=== PATIENT | male | born 1975 | race African-American/Black ===

== ENCOUNTER 2019-05-18 14:55 | Inpatient (IN) | payer SELFPAY ==
[~2019-05-18] VITALS: Ht 190.5 cm; Wt 87.4 kg
[2019-05-18] MEDS ORDERED: SODIUM CHLORIDE 0.9% 1,000 ML IV ONE (16:25)
[2019-05-18 16:40] LABS: Basophils # (auto) 0 uL; Basophils % (auto) 0.8 % (0.0-2.0); Eosinophils # (auto) 0.1 uL; Eosinophils % (auto) 2.3 % (0.0-7.0); Hematocrit 42.4 % (41.0-53.0); Hemoglobin 14.7 g/dL (13.5-17.5); Lymphocytes # (auto) 1.7 uL; Lymphocytes % (auto) 29.6 % (10.0-50.0); Mean Corpuscular Hemoglobin 33.4 pg (28.0-32.0); Mean Corpuscular Hgb Conc. 34.8 g/dL (32.0-36.0); Monocytes # (auto) 0.6 uL; Monocytes % (auto) 9.7 % (0.0-12.0); Neutrophils # (auto) 3.4 uL; Neutrophils % (auto) 57.6 % (37.0-80.0); Nucleated Red Blood Cells % 0.1 %; Platelet Count (auto) 212 10^3/uL (140-450); Red Blood Cells 4.41 10^6/uL (4.5-5.90); Red Cell Distribution Width 12.9 % (11.8-14.3); White Blood Cell 5.8 10^3/uL (4.4-10.8)
[2019-05-18 16:55] LABS: Albumin 3.8 g/dL (3.4-5.0); Anion Gap 5 (5-15); Blood Urea Nitrogen 14 mg/dL (7-18); Calcium 8.7 mg/dL (8.5-10.1); Carbon Dioxide 28 mmol/L (21-32); Chloride 105 mmol/L (98-107); Glucose 311 mg/dL (74-106); Potassium 4.2 mmol/L (3.5-5.1); Sodium 138 mmol/L (136-145)
[2019-05-18 16:58] LABS: Alanine Aminotransferase 17 U/L (16-61); Alkaline Phosphatase 104 U/L (45-117); Aspartate Aminotransferase 13 U/L (15-37); BUN/Creatinine Ratio 12.3; Bilirubin, Total 0.7 mg/dL (0.2-1.0); GFR African American 90 mL/min; GFR Non-African American 74 mL/min; Total Protein 7.2 g/dL (6.4-8.2)
[2019-05-18] MEDS ORDERED: PIPERACILLIN-TAZOB 3.375GM 100 ML IV ONE (17:00)
[2019-05-18] MEDS ORDERED: VANCOMYCIN 1GM/250ML 250 ML IV ONE (17:00)
[2019-05-18 17:03] LABS: INR 0.95 (0.9-1.15)
[2019-05-18] MEDS ORDERED: DEXTROSE (50%) 50ML SYRG IV PRN (21:45)
[2019-05-18] MEDS ORDERED: ONDANSETRON HCL 4 MG/2 ML VIAL IV PRN (21:45)
[2019-05-18] MEDS ORDERED: VANCOMYCIN PER PHARMACY 0 MG IV SCH (21:45)
[2019-05-18] MEDS ORDERED: TEMAZEPAM 15 MG CAP PO PRN (21:45)
[2019-05-18] MEDS ORDERED: HYDROcodone-ACET 5/325MG TAB PO PRN (21:45)
[2019-05-18] MEDS ORDERED: ACETAMINOPHEN 325 MG TAB PO PRN (21:45)
[2019-05-18] MEDS: FAMOTIDINE 20 MG TAB PO SCH (22:54)
--- NOTE | 2019-05-19 00:01 | NUR ---
OPENING NOTES RECEIVED REPORT FROM ED NURSE. PT IS ALERT AND ORIENTATED X 4 WITH NO S/S OF DISTRESS NOR SOB. NO REPORTS OF PAIN. BED BRAKES ARE LOCKED AND CALL LIGHT IS WITH IN REACH. BED IS IN LOWEST POSITION AND SIDE RAILS ARE UP X 2. HOB IS 30 DEGREES. DISCUSSED POC WITH PATIENT AND PT VERBALIZED UNDERSTANDING
[2019-05-19] MEDS ORDERED: INSLANTI SC (00:57)
[2019-05-19] MEDS ORDERED: METF-370 PO (00:57)
[2019-05-19] MEDS: VANCOMYCIN 1,500 MG in D5W 5% 250 ML IV SCH ×2 (01:00→10:47)
[2019-05-19] MEDS: PIPERACILLIN-TAZOB 3.375GM 100 ML IV SCH ×2 (01:06→06:01)
[2019-05-19 04:51] VITALS: BP 107/67
[2019-05-19] MEDS: ACCU-CHEK COMFORT CURVE STRIP VI SCH ×4 (05:52→18:00)
[2019-05-19] MEDS: InsuLIN REG 1unit/0.01ml Soln (100units/ml) SC SCH ×4 (06:01→18:00)
[2019-05-19 06:16] LABS: Basophils # (auto) 0.1 uL; Basophils % (auto) 1.6 % (0.0-2.0); Eosinophils # (auto) 0.2 uL; Eosinophils % (auto) 3.5 % (0.0-7.0); Hematocrit 38.8 % (41.0-53.0); Hemoglobin 13.4 g/dL (13.5-17.5); Lymphocytes # (auto) 2.1 uL; Lymphocytes % (auto) 42.9 % (10.0-50.0); Mean Corpuscular Hemoglobin 33.5 pg (28.0-32.0); Mean Corpuscular Hgb Conc. 34.5 g/dL (32.0-36.0); Mean Corpuscular Volume 97.2 fL (80.0-100.0); Monocytes # (auto) 0.6 uL; Monocytes % (auto) 11.8 % (0.0-12.0); Neutrophils % (auto) 40.2 % (37.0-80.0); Platelet Count (auto) 192 10^3/uL (140-450); Red Blood Cells 3.99 10^6/uL (4.5-5.90); Red Cell Distribution Width 12.8 % (11.8-14.3)
[2019-05-19 06:43] LABS: Potassium 3.7 mmol/L (3.5-5.1)
[2019-05-19 06:49] LABS: BUN/Creatinine Ratio 13.7; Calcium 8.2 mg/dL (8.5-10.1)
--- NOTE | 2019-05-19 07:19 | NUR ---
Opening Shift Note: Assumed care of patient, awake and alert. No S/S of distress/SOB or pain. Bed in lowest locked position, side rails up x 2, call light within reach. Patient instructed on POC and to call for assist PRN, will continue to monitor for changes Q1hr and PRN. Addendum: 05/19/19 at 1501 by YENI BLANCHARD RN RN Disregard. Wrong patient.
--- NOTE | 2019-05-19 07:26 | NUR ---
Opening Shift Note: Assumed care of patient, awake and alert. No S/S of distress/SOB or pain. Bed in lowest locked position, side rails up x 2, call light within reach. Patient instructed on POC and to call for assist PRN, will continue to monitor for changes Q1hr and PRN.
--- NOTE | 2019-05-19 07:30 | NUR ---
CLOSING NOTES ENDORSED CARE TO DAY SHIFT NURSE
--- NOTE | 2019-05-19 08:44 | NUR ---
Urine sample collected. Sent to lab.
[2019-05-19 09:04] LABS: Urine Bacteria NONE SEEN /hpf (None Seen); Urine Blood Negative /uL (Negative); Urine Specific Gravity 1.018 (1.001-1.035); Urine WBC <1 /hpf (0 - 3)
[2019-05-19 09:26] VITALS: BP 107/53
[2019-05-19] MEDS: FAMOTIDINE 20 MG TAB PO SCH ×2 (10:43→23:57)
[2019-05-19] MEDS ORDERED: VANCOMYCIN 1,250 MG in D5W 5% 250 ML IV SCH (11:00)
[2019-05-19] MEDS: ALBUTEROL SULF 2.5 MG/0.5ML(0.5%) NEB SOLN NEB SCH ×2 (11:32→18:38)
[2019-05-19] MEDS: IPRATROPIUM BROM 0.5 MG/2.5ML INH SOL NEB SCH ×2 (11:32→18:38)
--- NOTE | 2019-05-19 11:55 | NUR ---
WOUND CARE NOTE: IN TO SEE PATIENT AT THIS TIME PER WOUND CARE CONSULT REQUEST. PATIENT NOTED TO HAVE WOUND UPON ADMIT. WOUND PHOTO TAKEN AT THAT TIME BY BEDSIDE NURSE FOR REFERENCE. PATIENT ADMITTED TO [facility] WITH DIAGNOSIS OF RIGHT FOOT CELLULITIS. CURRENT ROLANDO SCORE IS 21. PATIENT IS FULLY AMBULATORY. PATIENT HAS HISTORY WITH DM SINCE THE AGE OF 12. HE ALSO HAS HISTORY WITH AMPUTATION OF RIGHT # 1 TOE. STUMP IS WELL HEALED, NO WOUND PRESENT. PATIENT STATES THAT HE LOST HIS TOENAIL TO THE LEFT # 2 TOE WHEN IN BED. HE IS NOTED TO HAVE A 1 X 1.2 CM OPEN WOUND FROM NAIL AVULSION/DFU NOTED. WOUND BED IS PINK, PERIWOUND IS BRIGHT RED, EDEMATOUS. SCANT SEROUS DRAINAGE NOTED. PATIENT EDUCATED ON DM/DFU AND THE NEED FOR PATIENT TO CONSULT WITH LOGISTICS MANAGER. HE STATES THAT HE WILL DO THAT, HE HAS NOT SEEN A LOGISTICS MANAGER FOR SEVERAL YEARS. APPLIED HINA TREVINO TO WOUND, WRAPPED TOE/FOOT WITH SMALL KERLIX, SECURED WITH TAPE. RECOMMEND: ELEVATION OF LEFT FOOT UP ONTO PILLOWS FOR EDEMA CONTROL, EOD/PRN DRESSING CHANGE TO LEFT # 2 TOE, DIETARY CONSULT, PODIATRY CONSULT, CONTINUED MONITORING BY WOUND CARE TEAM. Addendum: 05/19/19 at 1918 by Viki Mason RN Amended: Links added.
[2019-05-19 12:52] VITALS: BP 121/66
[2019-05-19 12:55] VITALS: BP 118/67
[2019-05-19] MEDS: cefTRIAXone 1GM/50ML D5W 50 ML IV SCH (13:21)
[2019-05-19] MEDS: metroNIDAZOLE 500MG/100ML 100 ML IV SCH ×2 (14:56→23:58)
[2019-05-19 16:32] VITALS: BP 120/78
--- NOTE | 2019-05-19 19:30 | NUR ---
Opening Shift Note Assumed care of patient, awake and alert and watching TV. No S/S of distress/SOB, and pt denies pain. Instructed on POC and to call for assist PRN. This RN will continue to monitor for changes Q1hr and PRN. Socks and shoes on. Bed low and locked. Call light within reach.
--- NOTE | 2019-05-19 21:10 | NUR ---
Pt amb to nurses' station to ask about possibility of his going home and returning. He states that his has papers he needs and will evidently not be bringing them to the hospital as he needs. He further states that she may leave him; and if he does not go home to take care of the papers, he will prob. lose his home and his car. He states he wants to return after taking care of the situation but does not want "to start all over in the ER." This RN repeatedly answering his questions and informing him that he has the right to leave if he desires, but that he will have to go Against Medical Advice (AMA); and he will have to return through the ER who may admit and may not. Pt states RN does not understand and asked for CN to be called. This RN informed MARCELA Soria, CN of need for her to speak with pt.
--- NOTE | 2019-05-19 21:20 | NUR ---
Estella, RN, charge nurse in to this pt's room to discuss poss. for pt to leave hospital and come back without discharge. This RN accompanying charge nurse for her request. Charge nurse repeated options as presented by this RN, that pt can sign self out AMA and return to the ER for their evaluation for need to re-admit or not. Pt pressing for CN to okay his departure and reassure his admittance back into hospital without going through ER. Pt asking to speak with [facility]. Estella called and spoke with [facility] via telephone.
--- NOTE | 2019-05-19 21:45 | NUR ---
Information Broker in to pt's room to speak with him; states pt has changed his mind and will be staying.
[2019-05-19 22:00] VITALS: BP 129/76
--- NOTE | 2019-05-19 23:20 | NUR ---
Opening Note/Transfer of Care Received report from RN at 2330. Assumed care of patient. Patient awake and alert. No S/S of distress/SOB or pain. Instructed on POC and to call for assist PRN, will continue to monitor for changes. Bed locked in lowest position and bed rails up x2. Call light within reach.
--- NOTE | 2019-05-19 23:20 | NUR ---
TRANSFER OF NURSING CARE: Report given by this RN to transfer care of pt to Marcin Ochoa RN for remainder of shift for staffing purposes. Pt stable.
--- NOTE | 2019-05-20 | NUR ---
Changed left foot dressing per orders
[2019-05-20] MEDS: ACCU-CHEK COMFORT CURVE STRIP VI SCH ×5 (00:02→23:31)
[2019-05-20] MEDS: InsuLIN REG 1unit/0.01ml Soln (100units/ml) SC SCH ×5 (00:29→23:31)
[2019-05-20 04:58] VITALS: BP 101/60
[2019-05-20] MEDS: IPRATROPIUM BROM 0.5 MG/2.5ML INH SOL NEB SCH ×3 (06:33→19:21)
[2019-05-20] MEDS: ALBUTEROL SULF 2.5 MG/0.5ML(0.5%) NEB SOLN NEB SCH ×3 (06:33→19:21)
[2019-05-20] MEDS: metroNIDAZOLE 500MG/100ML 100 ML IV SCH ×3 (06:42→22:00)
--- NOTE | 2019-05-20 07:37 | NUR ---
Opening Shift Note: Assumed care of patient, awake and alert. No S/S of distress/SOB. Patient states pain at IV site. Bed in lowest locked position, side rails up x 2, call light within reach. Patient instructed on POC and to call for assist PRN, will continue to monitor for changes Q1hr and PRN.
--- NOTE | 2019-05-20 08:10 | NUR ---
IV insertion: IV access obtained, via clean sterile technique by inserting 20 gauge catheter at right forearm after 2 attempt. IV secured properly. No trauma to site. Patient tolerated well. Flagyl IV antibiotic restarted at this time.
--- NOTE | 2019-05-20 08:15 | NUR ---
IV removal: Left forearm IV DC'd with clean sterile technique, catheter fully intact. Pressure dressing applied to site. Patient tolerated well.
[2019-05-20 09:00] VITALS: BP 124/74
[2019-05-20] MEDS: cefTRIAXone 1GM/50ML D5W 50 ML IV SCH (09:32)
[2019-05-20] MEDS: FAMOTIDINE 20 MG TAB PO SCH ×2 (09:32→22:00)
[2019-05-20] MEDS: VANCOMYCIN 1,500 MG in D5W 5% 250 ML IV SCH ×2 (11:17→23:30)
[2019-05-20 13:00] VITALS: BP 130/85
--- NOTE | 2019-05-20 13:26 | NUR ---
NUTRITION CONSULT/ASSESSMENT NOTES Please refer to link notes of nutrition screen form filed under the intervention section of the plan of care for further details. Est. Needs: 2350 kcal to 2650 kcal (25-28 kcal/kgBW), 95 gms to 114 gms pro (1.0-1.2 gms/kgBW). Will continue to monitor pertinent labs and reassess nutrient need prn Thank you for this consult. Addendum: 05/20/19 at [address] Amended: Links added.
--- NOTE | 2019-05-20 14:55 | NUR ---
PATIENT OFF UNIT, AMA TO SMOKE.
[2019-05-20 17:00] VITALS: BP 116/70
--- NOTE | 2019-05-20 19:04 | NUR ---
Respiratory note: AT BEDSIDE FOR MED [place], PT OFF UNIT.
--- NOTE | 2019-05-20 19:20 | NUR ---
OPENING SHIFT NOTE Assumed care of patient who is alert and oriented. Currently on room air with no s/s of distress or SOB. Denies pain at this time. Patient is ambulatory without the use of assistive devices. Dressing to left second toe is intact with minimal serosanguineous drainage noted. Drainage circled. POC discussed with patient who verbalizes understanding. All questions answered. Bed is in low locked position with side rails up x2. Call light is within reach. Patient encouraged to call for assistance when needed. Will continue to monitor for changes PRN.
--- NOTE | 2019-05-20 20:30 | NUR ---
Patient off unit AMA to smoke.
[2019-05-20 22:00] VITALS: BP 124/70
[2019-05-21 05:00] VITALS: BP 110/68
[2019-05-21] MEDS: ACCU-CHEK COMFORT CURVE STRIP VI SCH ×4 (05:34→23:33)
[2019-05-21] MEDS: metroNIDAZOLE 500MG/100ML 100 ML IV SCH ×3 (05:34→22:21)
[2019-05-21] MEDS: InsuLIN REG 1unit/0.01ml Soln (100units/ml) SC SCH ×4 (05:35→23:33)
[2019-05-21] MEDS: IPRATROPIUM BROM 0.5 MG/2.5ML INH SOL NEB SCH ×3 (06:40→19:01)
[2019-05-21] MEDS: ALBUTEROL SULF 2.5 MG/0.5ML(0.5%) NEB SOLN NEB SCH ×3 (06:40→19:01)
--- NOTE | 2019-05-21 08:31 | NUR ---
Patient off unit, AMA to smoke.
[2019-05-21 09:00] VITALS: BP 137/78
[2019-05-21] MEDS: FAMOTIDINE 20 MG TAB PO SCH ×2 (09:50→22:21)
[2019-05-21] MEDS: cefTRIAXone 1GM/50ML D5W 50 ML IV SCH (09:50)
[2019-05-21] MEDS: VANCOMYCIN 1,500 MG in D5W 5% 250 ML IV SCH ×2 (11:19→23:33)
--- NOTE | 2019-05-21 11:36 | NUR ---
Dr. Stone at bedside. Discussed POC with patient.
--- NOTE | 2019-05-21 12:45 | NUR ---
IV insertion: IV access obtained, via clean sterile technique by inserting 20 gauge catheter at left forearm after 1 attempt. IV secured properly. No trauma to site. Patient tolerated well.
--- NOTE | 2019-05-21 12:47 | NUR ---
IV infiltrated. Swelling and redness at the site. IV removal: IV removed with clean sterile technique, catheter fully intact. Pressure dressing applied to site. Patient tolerated well.
[2019-05-21 13:00] VITALS: BP 126/81
--- NOTE | 2019-05-21 14:32 | NUR ---
Dr. Hardin at bedside. Discussed POC with patient.
[2019-05-21 17:00] VITALS: BP 101/64
--- NOTE | 2019-05-21 19:15 | NUR ---
RECEIVED PATIENT, AWAKE, ALERT. ORIENTED X4. NO S/S OF RESPIRATORY DISTRESS. ORIENTED ON PLAN OF CARE. BED IS LOCKED AND IN LOWEST POSITION, SIDE RAILS UP X2, CALL LIGHT WITHIN REACH. WILL CONTINUE TO MONITOR
[2019-05-21 21:47] VITALS: BP 125/86
[2019-05-21] MEDS: DAKINS HALF STR 0.25% (NaHypochlorite) 473 ML TOPICAL SOL TOP SCH (22:22)
[2019-05-22 05:34] VITALS: BP 96/59
[2019-05-22] MEDS: metroNIDAZOLE 500MG/100ML 100 ML IV SCH ×2 (05:42→14:00)
[2019-05-22] MEDS: InsuLIN REG 1unit/0.01ml Soln (100units/ml) SC SCH ×2 (05:43→12:10)
[2019-05-22] MEDS: ACCU-CHEK COMFORT CURVE STRIP VI SCH ×2 (05:43→11:52)
[2019-05-22] MEDS: ALBUTEROL SULF 2.5 MG/0.5ML(0.5%) NEB SOLN NEB SCH ×2 (06:43→11:52)
[2019-05-22] MEDS: IPRATROPIUM BROM 0.5 MG/2.5ML INH SOL NEB SCH ×2 (06:43→11:52)
--- NOTE | 2019-05-22 07:41 | NUR ---
CARE ENDORSED TO AM SHIFT RN
[2019-05-22 09:21] VITALS: BP 126/76
[2019-05-22] MEDS: cefTRIAXone 1GM/50ML D5W 50 ML IV SCH (09:43)
[2019-05-22] MEDS: FAMOTIDINE 20 MG TAB PO SCH (09:43)
[2019-05-22] MEDS: DAKINS HALF STR 0.25% (NaHypochlorite) 473 ML TOPICAL SOL TOP SCH (10:00)
[2019-05-22 10:47] VITALS: BP 126/76
[2019-05-22 10:55] LABS: Basophils # (auto) 0.1 uL; Basophils % (auto) 0.8 % (0.0-2.0); Eosinophils # (auto) 0.2 uL; Eosinophils % (auto) 2.9 % (0.0-7.0); Hematocrit 40.8 % (41.0-53.0); Hemoglobin 14.4 g/dL (13.5-17.5); Lymphocytes # (auto) 1.7 uL; Lymphocytes % (auto) 21.9 % (10.0-50.0); Mean Corpuscular Hemoglobin 33.7 pg (28.0-32.0); Mean Corpuscular Hgb Conc. 35.3 g/dL (32.0-36.0); Mean Corpuscular Volume 95.5 fL (80.0-100.0); Monocytes # (auto) 0.6 uL; Monocytes % (auto) 7.5 % (0.0-12.0); Neutrophils # (auto) 5.2 uL; Neutrophils % (auto) 66.9 % (37.0-80.0); Platelet Count (auto) 222 10^3/uL (140-450); Red Blood Cells 4.27 10^6/uL (4.5-5.90); Red Cell Distribution Width 12.6 % (11.8-14.3); White Blood Cell 7.7 10^3/uL (4.4-10.8)
[2019-05-22 11:04] LABS: BUN/Creatinine Ratio 17.4; Calcium 8.7 mg/dL (8.5-10.1); Potassium 3.9 mmol/L (3.5-5.1)
[2019-05-22] MEDS: VANCOMYCIN 1,500 MG in D5W 5% 250 ML IV SCH (11:52)
[2019-05-22] MEDS ORDERED: CEPH-37 PO (12:12)
--- NOTE | 2019-05-22 12:39 | NUR ---
Hospitalist at bedside MD Hardin at bedside, aware of patient's status. Awaiting new orders and prescriptions at this time.
[2019-05-22 13:00] VITALS: BP 132/88
--- NOTE | 2019-05-22 14:15 | NUR ---
Wound photos taken dressing changed performed as ordered. Patient tolerated well with no s/s of distress or pain. Wound photos taken and form placed in wound care folder. Will d/c as ordered.
--- NOTE | 2019-05-22 17:10 | NUR ---
Discharge instructions given as ordered to patient, and after patient's consent, at bedside. Encourage to follow up with PMD as instructed. All questions and concerns addressed. Patient verbalized understanding. Medication reconciliation form completed and copy given to patient. IV removed with catheter intact, pressure dressing applied. Patient refused wheelchair, pt ambulated in no acute distress. Patient ambulated with all personal belongings, accompanied by staff and family member. No distress noted at time of departure.
[2019-05-22 17:24] VITALS: BP 118/80
== END 2019-05-22 17:10 | disposition home or self-care (01) | DRG 603 ==
LOC: ER 14:55 → OVERFLOW 14:56 → WEST WING 23:06
PROVIDERS: ADMIT Nurse Practitioner; ATTEND Internal Medicine Nephrology
DX: L03.032 Cellulitis of left toe (principal); E11.42 Type 2 diabetes mellitus with diabetic polyneuropathy; E11.51 Type 2 diabetes mellitus with diabetic peripheral angiopathy without gangrene; I10 Essential (primary) hypertension; J44.9 Chronic obstructive pulmonary disease, unspecified; Z72.0 Tobacco use; Z82.49 Family history of ischemic heart disease and other diseases of the circulatory system; Z83.3 Family history of diabetes mellitus; Z89.421 Acquired absence of other right toe(s)
CPT/HCPCS: 36415; 71045; 73700; 80048; 80053; 80202; 81001; 82962; 83036; 83605; 84484; 85025; 85610; 85730; 86141; 87040; 93926; 94640; 96365; G0378; J0696; J1815; J2543; J3490; J7060